=== PATIENT | female | born 1945 | race Caucasian/White ===

== ENCOUNTER 2018-01-10 20:49 | Inpatient (IN) | payer OTHER ==
--- NOTE | 2018-01-10 20:56 | PDOC ---
History of Present Illness - General Stated Complaint: AMS History Source: Patient, Sibling Exam Limitations: No Limitations - History of Present Illness Initial Comments: 01/10/18 21:51 Ms. George is a 72 year old female with a history of HTN, HLD, alcohol abuse, COPD, atrial fibrillation on eliquis, although recently taken off on 01/08 due to fall/head injury, who was admitted for acute exacerbation of her COPD that left AMA today and now returns with worsening shortness of breath and non productive cough. Patient states that she was walking the street wit her her rolling walker, police called ambulance and brought her here. She is [place]. She denies chest pain, SCHULZ, LOC, blurry vision, abdominal pain, dysuria, leg swelling. Denies currently drinking or drug use. Admits to occasional cigarettes. In the ED patient hypoxic in the 80s, normotensive, afebrile. Past History - Past Medical History Allergies/Adverse Reactions: Allergies Allergy/AdvReac Type Severity Reaction Status Date / Time No Known Allergies Allergy Verified 01/10/18 22:20 Home Medications: Ambulatory Orders Albuterol Sulfate Inhaler - [Ventolin Hfa Inhaler -] 1 - 2 inh PO Q4H 01/08/18 Apixaban [Eliquis] 5 mg PO BID 01/08/18 Atorvastatin Ca [Lipitor] 80 mg PO HS 01/08/18 Carvedilol [Coreg -] 6.25 mg PO BID 01/08/18 Montelukast Sodium [Singulair] 10 mg PO DAILY 01/08/18 Cancer: No COPD: No CHF: No Dementia: No Dialysis: No Disorders: No Hypercholesterolemia: No Liver Disease: No - Surgical History Appendectomy: No GI Surgery: No Lung Surgery: No - Immunization History Immunization Up to Date: No - Suicide/Smoking/Psychosocial Hx Smoking History: Unknown if ever smoked Hx Alcohol Use: Yes Drug/Substance Use Hx: No Substance Use Type: Alcohol Review of Systems - Review of Systems Able to Perform ROS?: Yes Is the patient limited Khmer proficient: Yes Constitutional: No: Chills, Diaphoresis, Fever, Loss of Appetite, Weakness Respiratory: Yes: SOB with Exertion, SOB at Rest, Wheezing. No: Cough, Orthopnea, Shortness of Breath, Productive cough, Hemoptysis Cardiac (ROS): No: Chest Pain, Edema, Lightheadedness, Palpitations, Syncope ABD/GI: No: Abdominal Distended, Diarrhea, Nausea, Vomiting : No: Burning, Dysuria, Discharge Musculoskeletal: No: Back Pain, Joint Pain Integumentary: Yes: Bruising Neurological: No: Headache, Numbness, Paresthesia Endocrine: No: Excessive Sweating, Flushing Hematologic/Lymphatic: Yes: Blood Clots. No: Anemia *Physical Exam - Physical Exam General Appearance: Yes: Appropriately Dressed, Disheveled, Thin HEENT: positive: Normal ENT Inspection, Pharynx Normal, Other (dry mucus membranes) Respiratory/Chest: positive: Decreased Breath Sounds, Rhonchi, Wheezing, Other ( very course breath sounds throughout bilateral lung nelson) Cardiovascular: positive: S1, S2, Irregularly Irregular Gastrointestinal/Abdominal: positive: Normal Bowel Sounds. 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 She presented with worsening sob, cough, hypoxic in the 80s. VBG CO2 74; PH 7.27 #acute hypoxic/hypercapniec respiratory failure secondary to COPD exacerbation: -suppplemental O2 -duonebs -solumedrol 125mg IVP -BiPAP; patient is retaining CO2 -re eval 01/10/18 23:18 -will admit to hospitalist *DC/Admit/Observation/Transfer Diagnosis at time of Disposition: Acute respiratory failure with hypoxia and hypercapnia, COPD exacerbation - Discharge Dispostion Decision to Admit order: Yes - Referrals - Patient Instructions - Post Discharge Activity
[2018-01-10] MEDS ORDERED: ALBUTEROL SO4 2.5/IPRATROPIUM 0.5 INH SOL 3 ML VIAL.NEB. NEB ONE ×4 (21:19→22:34)
[2018-01-10] MEDS ORDERED: methylPREDNISolone NA SUCC 125 MG/2 ML VIAL IVPB ONE (21:20)
[2018-01-10 22:24] LABS: BASO % 0.1 % (0-2.0); HEMATOCRIT 34.1 % (32.4-45.2); LYMPH % 6.1 % (8-40); MCH 28.6 pg (25.7-33.7); MCHC 32.3 g/dl (32.0-36.0); MEAN CELL VOLUME 88.4 fl (80-96); MEAN PLT VOLUME 9.5 fl (7.5-11.1); MONO % 5.3 % (3.8-10.2); NEUT % 88.5 % (42.8-82.8); PLATELET COUNT 252 K/MM3 (134-434); RBC 3.86 M/mm3 (3.60-5.2); RDW 18.9 % (11.6-15.6); WHITE BLOOD COUNT 13.7 K/mm3 (4.0-10.0)
[2018-01-10 22:26] LABS: VENOUS PH 7.27 (7.32-7.42); VENOUS PO2 32.4 mmHg (28-48)
[2018-01-10 22:27] LABS: VENOUS PC02 74.4 mmHg (38-52)
[2018-01-10] MEDS ORDERED: methylPREDNISolone NA SUCC 40 MG/1 ML VIAL ONE (22:30)
[2018-01-10] MEDS ORDERED: methylPREDNISolone NA SUCC 40 MG/1 ML VIAL IVPUSH ONE (22:31)
[2018-01-10] MEDS ORDERED: methylPREDNISolone NA SUCC 125 MG/2 ML VIAL IVPUSH ONE (22:34)
[2018-01-10] MEDS ORDERED: methylPREDNISolone NA SUCC 125 MG/2 ML VIAL ONE (22:34)
[2018-01-10 22:43] LABS: INR 1.03 (0.83-1.09); PROTHROMBIN TIME (PATIENT) 12.2 SEC (9.7-13.0)
[2018-01-10 22:59] LABS: ALBUMIN 3.4 g/dl (3.4-5.0); ALK PHOS 105 U/L (45-117); ANION GAP 6 MMOL/L (8-16); BILIRUBIN,TOTAL 0.4 mg/dL (0.2-1); BLOOD UREA NITROGEN 34 mg/dL (7-18); CHLORIDE 107 mmol/L (98-107); CO2 35 mmol/L (22-28); CREATININE 1.3 mg/dL (0.55-1.3); GLUCOSE,RANDOM 191 mg/dL (74-106); POTASSIUM 3.6 mmol/L (3.5-5.1); SGOT/AST 19 U/L (15-37); SGPT/ALT 26 U/L (13-61); SODIUM 147 mmol/L (136-145); TOT PROT 7.2 g/dl (6.4-8.2)
--- NOTE | 2018-01-10 23:17 | PDOC ---
Attending Attestation - Resident Resident Name: Amara Sampson - ED Attending Attestation I have performed the following: I have examined & evaluated the patient, The case was reviewed & discussed with the resident, I agree w/resident's findings & plan, Exceptions are as noted - HPI HPI: 01/10/18 23:15 The patient is a 72-year-old female with past medical history significant for COPD, AFib, HLD, HTN presents to the emergency department with shortness of breath. Per records, the patient was admitted to the hospital for COPD exacerbation 3 days ago; the patient reports she requested to be CO'ed yesterday to collect her personal belongings. Today, police officers found the patient on the streets, and pt was brought back to the hospital. The patient endorses shortness of breath, denies chest pain, fever, N/V, diarrhea. The patient is a resident at the [facility]. Allergies: NKA Social history: Reports the use of alcohol and tobacco. No recreational drug use reported. Surgical history: None reported. PCP: Marisabel Bryant - Physicial Exam PE: 01/10/18 23:16 "GENERAL: Awake, alert, and fully oriented, in no acute distress. HEAD: No signs of trauma EYES: PERRLA, EOMI, sclera anicteric, conjunctiva clear ENT: Auricles normal inspection, hearing grossly normal, nares patent, oropharynx clear without exudates. Moist mucosa NECK: Nontender, no stepoffs, Normal ROM, supple, no lymphadenopathy, JVD, or masses LUNGS: + bilateral wheezing HEART: Regular rate and rhythm, normal S1 and S2, no murmurs, rubs or gallops ABDOMEN: Soft, nontender, normoactive bowel sounds. No guarding, no rebound. No masses EXTREMITIES: Normal range of motion, no edema. No clubbing or cyanosis. No cords, erythema, or tenderness NEUROLOGICAL: Cranial nerves II through XII intact. 5/5 strength and sensation in all extremities, Normal speech, normal gait, normal cerebellar function SKIN: Warm, Dry, normal turgor, no rashes or lesions noted. - Medical Decision Making 01/10/18 23:16 72 F with SOB and wheezing. Likely COPD exacerbation. - Labs, VBG - CXR - Nebs, steroids - BiPAP PRN
[2018-01-11] MEDS ORDERED: ALBUTEROL SO4 0.083% IH SOL 2.5 MG/3 ML VIAL.NEB. NEB PRN (00:06)
--- NOTE | 2018-01-11 00:50 | PN ---
Teaching Attending Note Name of Resident: Juaquin Heard ATTENDING PHYSICIAN STATEMENT I saw and evaluated the patient. I reviewed the resident's note and discussed the case with the resident. I agree with the resident's findings and plan as documented. SUBJECTIVE: Patient is a 72 year old woman with a history of HTN, HLD, alcohol abuse, COPD, atrial fibrillation on eliquis, although recently taken off on 01/08 due to fall/ head injury, who was admitted for acute exacerbation of her COPD that left AMA today and now returns with worsening SOB and non productive cough. Patient states that she was walking the street wit her her rolling walker, police called ambulance and brought her here. She is from [facility] living. She denies chest pain, blurry vision, abdominal pain, dysuria, leg swelling. In the ER patient was hypoxic with O2 sat in the 80s, normotensive, afebrile. OBJECTIVE: HEENT: No Jaundice, eye redness or discharge, PERRLA, EOMI. Resolving left parietal scalp hematoma and healed right brow laceration. External ears are normal. Hearing intact. No nasal discharge. Neck: Supple, nontender. No palpable adenopathy or thyromegaly. No JVD Chest: Good effort. Wheezing. Heart: Regular. No S3, rub or murmur Abdomen: Not distended, soft, nontender and no HSM. No rebound or guarding. Normoactive bowel sounds. Ext: Peripheral pulses intact. No leg edema. Skin: Warm and dry. No petechiae, rash or ecchymosis. Neuro: Alert. Oriented to person and place. No asterexis or tremors. CN 2-12 grossly intact. Sensation grossly intact in all four extremities and DTR are symmetric. Current Medications Generic Name Dose Route Start Last Admin Trade Name Freq PRN Reason Stop Dose Admin Albuterol Sulfate 1 amp 01/11/18 00:06 Ventolin 0.083% Nebulizer Soln - NEB Q4H PRN SHORT OF BREATH/WHEEZING Apixaban 5 mg 01/11/18 10:00 Eliquis - PO BID CINDY Atorvastatin Calcium 80 mg 01/11/18 22:00 Lipitor - PO HS CINDY Carvedilol 6.25 mg 01/11/18 10:00 Coreg - PO BID [facility]INDY Ipratropium [place] 1 amp 01/11/18 08:00 Atrovent 0.02% Nebulizer - NEB RQID [facility] Methylprednisolone Sodium Succinate 40 mg 01/11/18 03:00 Solu-Medrol - IVPUSH Q6H-IV [facility] Montelukast Sodium 10 mg 01/11/18 22:00 Singulair - PO [facility] Home Medications Medication Instructions Recorded Albuterol Sulfate Inhaler - 1 - 2 inh PO Q4H 01/08/18 [Ventolin Hfa Inhaler -] Apixaban [Eliquis] 5 mg PO BID 01/08/18 Atorvastatin Ca [Lipitor] 80 mg PO HS 01/08/18 Carvedilol [Coreg -] 6.25 mg PO BID 01/08/18 Montelukast Sodium [Singulair] 10 mg PO DAILY 01/08/18 Abnormal Lab Results 01/10/18 01/10/18 01/10/18 02:21 02:21 02:21 WBC 13.7 H RDW 18.9 H Absolute Neuts (auto) 12.1 H Neutrophils % 88.5 H D Lymphocytes % 6.1 L D ABG pCO2 at Pt Temp ABG pO2 at Pt Temp ABG HCO3 ABG O2 Content ABG Base Excess VBG pH 7.27 L POC VBG pCO2 74.4 H* Mixed VBG HCO3 33.6 H Sodium 147 H Carbon Dioxide 35 H Anion Gap 6 L BUN 34 H Random Glucose 191 H 01/11/18 00:47 WBC RDW Absolute Neuts (auto) Neutrophils % Lymphocytes % ABG pCO2 at Pt Temp 56.2 H ABG pO2 at Pt Temp 111.0 H ABG HCO3 31.0 H ABG O2 Content 14.1 L ABG Base Excess 5.1 H VBG pH POC VBG pCO2 Mixed VBG HCO3 Sodium Carbon Dioxide Anion Gap BUN Random Glucose ASSESSMENT AND PLAN: 1. COPD exacerbation - No obvious precipitating factor. Has chronic reticulonodular fibrotic changes on CXR - no acute pathology. being treated with duoneb, solumedrol and symbicort as well as O2. 2. Alcohol abuse - Implement [facility] alcohol withdrawal protocol, fall and aspiration precautions. Treat with thiamine and folic acid and monitor electrolytes (Ca,Mg,K,P) as well as CPK. 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 3.Tobacco Use We will provide patient all the necessary assistance to facilitate smoking cessation and prescribe Nicotine patch. 4. DVT prophylaxis - On Eliquis 5. Advance directives - Full code
[2018-01-11 00:53] LABS: ALLENS TEST POSITIVE; ARTERIAL BLD GAS O2 SATURATION 98.1 % (90-98.9); ARTERIAL BLOOD GAS BASE EXCESS 5.1 meq/l (-2-2); ARTERIAL BLOOD GAS PCO2 56.2 mmHg (35-45); ARTERIAL BLOOD GAS pH 7.36 (7.35-7.45)
--- NOTE | 2018-01-11 01:09 | HP ---
CHIEF COMPLAINT: SOB PCP: HISTORY OF PRESENT ILLNESS: 72 yo F from [facility] living [facility] with history of Afib , COPD, hyperlipidemia who was admitted for acute exacerbation of her COPD that left AMA today and now returns with worsening shortness of breath and non productive cough. Patient states that she was walking the street wit her her rolling walker , police called ambulance and brought her here. Denies CP,SCHULZ, palpitations, abdominal pain,nausea, and vomiting. ER course was notable for: (1) VBG shows pH 7.27 and CO2 74.4 (2) Placed on BiPaP in ED. (3) Recent Travel: denies PAST MEDICAL HISTORY: Afib on elequis, COPD, hyperlipidemia PAST SURGICAL HISTORY: denies Social History: Smoking: current smoker. Admits 10 cigarettes/ day. Refuses to quantify pack year history. Alcohol: Admits former alcohol consumption. Again, patient refuses to quantify. Drugs: denies illicit drug use Family History: Unable to obtain. Patient agitated and refuses to discuss at this time. Allergies No Known Allergies Allergy (Verified 01/10/18 22:20) HOME MEDICATIONS: Home Medications Medication Instructions Recorded Albuterol Sulfate Inhaler - 1 - 2 inh PO Q4H 01/08/18 [Ventolin Hfa Inhaler -] Apixaban [Eliquis] 5 mg PO BID 01/08/18 Atorvastatin Ca [Lipitor] 80 mg PO HS 01/08/18 Carvedilol [Coreg -] 6.25 mg PO BID 01/08/18 Montelukast Sodium [Singulair] 10 mg PO DAILY 01/08/18 REVIEW OF SYSTEMS CONSTITUTIONAL: Absent: fever, chills, diaphoresis, generalized weakness, malaise, loss of appetite, weight change HEENT: Absent: rhinorrhea, nasal congestion, throat pain, throat swelling, difficulty swallowing, mouth swelling, ear pain, eye pain, visual changes CARDIOVASCULAR: Absent: chest pain, syncope, palpitations, irregular heart rate, lightheadedness , peripheral edema RESPIRATORY: cough, shortness of breath, dyspnea with exertion Absent: , orthopnea, wheezing, stridor, hemoptysis GASTROINTESTINAL: Absent: abdominal pain, abdominal distension, nausea, vomiting, diarrhea, constipation, melena, hematochezia GENITOURINARY: Absent: dysuria, frequency, urgency, hesitancy, hematuria, flank pain, genital pain MUSCULOSKELETAL: Absent: myalgia, arthralgia, joint swelling, back pain, neck pain SKIN: Absent: rash, itching, pallor HEMATOLOGIC/IMMUNOLOGIC: Absent: easy bleeding, easy bruising, lymphadenopathy, frequent infections ENDOCRINE: Absent: unexplained weight gain, unexplained weight loss, heat intolerance, cold intolerance NEUROLOGIC: Absent: headache, focal weakness or paresthesias, dizziness, unsteady gait, seizure, mental status changes, bladder or bowel incontinence PSYCHIATRIC: Absent: anxiety, depression, suicidal or homicidal ideation, hallucinations. PHYSICAL EXAMINATION Vital Signs - 24 hr 01/10/18 01/10/18 01/11/18 22:21 23:07 00:03 Temperature 97.6 F Pulse Rate 66 114 H Respiratory 20 Rate Blood Pressure 119/69 O2 Sat by Pulse 80 L 97 100 Oximetry (%) GENERAL: lethargic HEAD: Left scalp tender to palpation with laceration over right eyebrow, tender to palpation. EYES: PERRLA, EOMI, sclera anicteric, conjunctiva clear. No lid lag. EARS, NOSE, THROAT: Dry mucous membranes. NECK: Supple without lymphadenopathy, JVD, or masses. LUNGS: Diminished breath sounds bilat. scattered rhonchi. HEART:Irregular, normal S1 and S2 without murmur, rub or gallop. ABDOMEN: Soft, NTND,NABS, no guarding, no rebound, no masses. MUSCULOSKELETAL: No CVA tenderness. UPPER EXTREMITIES: 2+ pulses, warm, well-perfused. No cyanosis. No clubbing. No peripheral edema. LOWER EXTREMITIES: 2+ pulses, warm, well-perfused. No calf tenderness. No peripheral edema. NEUROLOGICAL: Cranial nerves II-XII intact. Normal speech. PSYCHIATRIC: lethargic SKIN: Warm, dry, Laceration over right eyebrow. Laboratory Results - last 24 hr 01/10/18 01/10/18 01/10/18 02:21 02:21 02:21 WBC 13.7 H RBC 3.86 Hgb 11.0 Hct 34.1 MCV 88.4 MCH 28.6 MCHC 32.3 RDW 18.9 H Plt Count 252 MPV 9.5 D Absolute Neuts (auto) 12.1 H Neutrophils % 88.5 H D Lymphocytes % 6.1 L D Monocytes % 5.3 Eosinophils % 0.0 D Basophils % 0.1 Nucleated RBC % 0 PT with INR INR VBG pH POC VBG pCO2 POC VBG pO2 Mixed VBG HCO3 Sodium 147 H Potassium 3.6 Chloride 107 Carbon Dioxide 35 H Anion Gap 6 L BUN 34 H Creatinine 1.3 Creat Clearance w eGFR 40.04 Random Glucose 191 H Calcium 9.0 Total Bilirubin 0.4 AST 19 ALT 26 Alkaline Phosphatase 105 Creatine Kinase 54 Troponin I Cancelled Total Protein 7.2 Albumin 3.4 Alcohol, Quantitative < 3.0 01/10/18 01/10/18 01/10/18 02:21 02:21 02:21 WBC RBC Hgb Hct MCV MCH MCHC RDW Plt Count MPV Absolute Neuts (auto) Neutrophils % Lymphocytes % Monocytes % Eosinophils % Basophils % Nucleated RBC % PT with INR INR VBG pH 7.27 L POC VBG pCO2 74.4 H* POC VBG pO2 32.4 Mixed VBG HCO3 33.6 H Sodium Potassium Chloride Carbon Dioxide Anion Gap BUN Creatinine Creat Clearance w eGFR Random Glucose Calcium Total Bilirubin AST ALT Alkaline Phosphatase Creatine Kinase Cancelled Troponin I < 0.02 Total Protein Albumin Alcohol, Quantitative Cancelled 01/10/18 02:21 WBC RBC Hgb Hct MCV MCH MCHC RDW Plt Count MPV Absolute Neuts (auto) Neutrophils % Lymphocytes % Monocytes % Eosinophils % Basophils % Nucleated RBC % PT with INR 12.20 INR 1.03 VBG pH POC VBG pCO2 POC VBG pO2 Mixed VBG HCO3 Sodium Potassium Chloride Carbon Dioxide Anion Gap BUN Creatinine Creat Clearance w eGFR Random Glucose Calcium Total Bilirubin AST ALT Alkaline Phosphatase Creatine Kinase Troponin I Total Protein Albumin Alcohol, Quantitative ASSESSMENT/PLAN: 72 yo F from [facility] living facility with history of Afib , COPD, hyperlipidemia who was admitted for acute exacerbation COPD. Problem List - Problem (1) Acute exacerbation of chronic obstructive pulmonary disease (COPD) Assessment/Plan: * Duonebs standing and albuterol PRN * Supplemental O2 PRN to maintain SpO2 >90% * ABG in AM * Solumedrol 40mg Q6H * BiPap PRN * Pulmonary consult * (2) Chronic a-fib Assessment/Plan: continue Eliquis (3) Alcohol abuse Assessment/Plan: Implement [facility] alcohol withdrawal protocol * fall and aspiration precautions. * Treat with thiamine and folic acid and monitor electrolytes (Ca,Mg,K,P) as well as CPK. 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 Visit type - Emergency Visit Emergency Visit: Yes ED Registration Date: 01/10/18 Care time: The patient presented to the Emergency Department on the above date and was hospitalized for further evaluation of their emergent condition. - New Patient This patient is new to me today: Yes Date on this admission: 01/13/18 - Critical Care Critical Care patient: No
[2018-01-11] MEDS ORDERED: QUEtiapine FUMARATE 25 MG TABLET (FP) PO ONE (01:33)
[2018-01-11] MEDS ORDERED: HALOPERIDOL LACTATE 5 MG/ML IM ONE (01:37)
[2018-01-11] MEDS ORDERED: HALOPERIDOL LACTATE 5 MG/ML ONE (01:38)
[2018-01-11] MEDS ORDERED: methylPREDNISolone NA SUCC 40 MG/1 ML VIAL ONE (04:15)
[2018-01-11] MEDS: methylPREDNISolone NA SUCC 40 MG/1 ML VIAL IVPUSH SCH ×4 (04:21→21:14)
[2018-01-11 05:49] VITALS: BMI 22.1
[2018-01-11] MEDS: ALBUTEROL SO4 2.5/IPRATROPIUM 0.5 INH SOL 3 ML VIAL.NEB. NEB SCH ×4 (07:45→21:40)
[2018-01-11] MEDS ORDERED: IPRATROPIUM BR 0.02% 0.5 MG/2.5 ML VIAL.NEB. NEB SCH (08:00)
[2018-01-11] MEDS ORDERED: chlordiazePOXIDE HCL 25 MG CAPSULE PO PRN (11:13)
[2018-01-11] MEDS ORDERED: cefTRIAXone SODIUM 1 GM VIAL ONE (11:13)
[2018-01-11] MEDS ORDERED: DEXTROSE 5%-WATER - 50 ML IVPB ONE (11:14)
[2018-01-11] MEDS: LACTOBACILLUS ACIDOPHILUS 1 TABLET PO SCH (11:16)
[2018-01-11] MEDS: APIXABAN 5 MG TABLET PO SCH ×2 (11:16→21:14)
[2018-01-11] MEDS: CEFTRIAXONE 1 GM in DEXTROSE 5%-WATER - 50 ML IVPB SCH (11:16)
[2018-01-11] MEDS: CARVEDILOL 6.25 MG TABLET (FP) PO SCH ×2 (11:16→21:14)
--- NOTE | 2018-01-11 11:20 | PN ---
Progress Note, Physician Chief Complaint: Somnolent - Current Medication List Current Medications: Active Medications Albuterol Sulfate (Ventolin 0.083% Nebulizer Soln -) 1 amp NEB Q4H PRN PRN Reason: SHORT OF BREATH/WHEEZING Albuterol/Ipratropium (Duoneb -) 1 amp NEB RQID [facility] Last Admin: 01/11/18 07:45 Dose: 1 amp Apixaban (Eliquis -) 5 mg PO BID [facility] Atorvastatin Calcium (Lipitor -) 80 mg PO HS [facility] Carvedilol (Coreg -) 6.25 mg PO BID [facility] Chlordiazepoxide HCl (Librium -) 25 mg PO Q6H PRN PRN Reason: WITHDRAWAL(CONT SUBST) Ceftriaxone Sodium 1 gm/ (Dextrose) 50 mls @ 100 mls/hr IVPB DAILY [facility]; Protocol Lactobacillus Acidophilus (Bacid -) 1 tab PO DAILY [facility] Methylprednisolone Sodium Succinate (Solu-Medrol -) 40 mg IVPUSH Q6H-IV [facility] Last Admin: 01/11/18 04:21 Dose: 40 mg Montelukast Sodium (Singulair -) 10 mg PO HS [facility] - Objective Vital Signs: Vital Signs Temperature 36.2 C L 01/11/18 05:39 Pulse Rate 88 01/11/18 05:39 Respiratory Rate 20 01/11/18 05:56 Blood Pressure 103/66 01/11/18 05:39 O2 Sat by Pulse Oximetry (%) 100 01/11/18 09:00 Constitutional: Yes: Well Nourished, No Distress, Calm Cardiovascular: Yes: Regular Rate and Rhythm. No: Gallop, Murmur, Rub Respiratory: Yes: Regular, On Nasal O2, Rhonchi (in all lung nelson). No: Rales , Wheezes Gastrointestinal: Yes: Normal Bowel Sounds, Soft. No: Distention, Tenderness Extremities: Yes: WNL Edema: No Labs: CBC, BMP 01/10/18 02:21 01/10/18 02:21 INR, PTT INR 1.03 (0.83-1.09) 01/10/18 02:21 Problem List - Problems (1) UTI (urinary tract infection) Code(s): N39.0 - URINARY TRACT INFECTION, SITE NOT SPECIFIED (2) Tobacco abuse Code(s): Z72.0 - TOBACCO USE (3) Acute exacerbation of chronic obstructive pulmonary disease (COPD) Code(s): J44.1 - CHRONIC OBSTRUCTIVE PULMONARY DISEASE W (ACUTE) EXACERBATION (4) Acute respiratory failure with hypoxia and hypercapnia Code(s): J96.01 - ACUTE RESPIRATORY FAILURE WITH HYPOXIA; J96.02 - ACUTE RESPIRATORY FAILURE WITH HYPERCAPNIA (5) Alcohol abuse Code(s): F10.10 - ALCOHOL ABUSE, UNCOMPLICATED (6) Chronic a-fib Code(s): I48.2 - CHRONIC ATRIAL FIBRILLATION (7) Toxic metabolic encephalopathy Code(s): G92 - TOXIC ENCEPHALOPATHY Assessment/Plan (1) Acute exacerbation of chronic obstructive pulmonary disease (COPD) Assessment/Plan: -patient left AMA, presented again when had difficulty breathing -continue solumedrol -continue bronchodilators -monitor for improvement Code(s): J44.1 - CHRONIC OBSTRUCTIVE PULMONARY DISEASE W (ACUTE) EXACERBATION (2) Acute on chronic respiratory failure with hypoxemia Assessment/Plan: -continue COPD treatment as above Code(s): J96.21 - ACUTE AND CHRONIC RESPIRATORY FAILURE WITH HYPOXIA (3) Chronic a-fib Assessment/Plan: -holding coreg secondary to hypotension -still rate controlled -holding eliquis secondary to fall -may not be able to restart eliquis secondary to falling home Code(s): I48.2 - CHRONIC ATRIAL FIBRILLATION (4) Alcohol intoxication with toxic metabolic encephalopathy Assessment/Plan: -somnolent secondary to receiving haldol and seroquel -will place on prn librium for withdrawal Code(s): F10.929 - ALCOHOL USE, UNSPECIFIED WITH INTOXICATION, UNSPECIFIED Qualifiers: Complication of substance-induced condition: uncomplicated Qualified Code(s ): F10.920 - Alcohol use, unspecified with intoxication, uncomplicated (5) UTI -continue rocephin day 2 -follow up urine cultures (6) Tobacco abuse -will order nicotine patch
--- NOTE | 2018-01-11 12:27 | CON.PULM ---
Consult Consult Specialty:: PULM/CCM Referred by:: EMY Reason for Consultation:: SOB - History of Present Illness Chief Complaint: SOB History of Present Illness: 72 F, known from previous admissions. History of HTN, HLD, alcohol abuse, COPD , and atrial fibrillation on eliquis (recently taken off on 01/08 due to fall/ head injury). Was admitted for AE of COPD and then left AMA. Now returns with worsening SOB and non productive cough. No travel history or sick contacts. No hemoptysis or night sweats. In the ER she was noted to be hypoxic with O2 sat in the 80s. VBG noted. Repeat ABG reveals well compensated chronic respiratory failure. - History Source History Provided By: Patient Limitations to Obtaining History: Language Barrier - Past Medical History Cardio/Vascular: Yes: AFIB, Hyperlipdemia Pulmonary: Yes: COPD - Alcohol/Substance Use Hx Alcohol Use: Yes - Smoking History Smoking history: Current every day smoker Have you smoked in the past 12 months: Yes Aproximately how many cigarettes per day: 3 Home Medications - Allergies Allergies/Adverse Reactions: Allergies Allergy/AdvReac Type Severity Reaction Status Date / Time No Known Allergies Allergy Verified 01/10/18 22:20 - Home Medications Home Medications: Ambulatory Orders Albuterol Sulfate Inhaler - [Ventolin Hfa Inhaler -] 1 - 2 inh PO Q4H 01/08/18 Apixaban [Eliquis] 5 mg PO BID 01/08/18 Atorvastatin Ca [Lipitor] 80 mg PO HS 01/08/18 Carvedilol [Coreg -] 6.25 mg PO BID 01/08/18 Montelukast Sodium [Singulair] 10 mg PO DAILY 01/08/18 Review of Systems - Review of Systems Constitutional: reports: Lethargy, Loss of Appetite, Malaise, Weakness. denies : Chills, Fever, Night Sweats, Unintentional Wgt. Loss Eyes: reports: No Symptoms HENT: reports: No Symptoms Neck: reports: No Symptoms Cardiovascular: reports: Shortness of Breath. denies: Chest Pain, Edema, Palpitations Respiratory: reports: Cough, Exercise Intolerance, SOB, SOB on Exertion, Wheezing. denies: Hemoptysis, Orthopnea, PND, Snoring Gastrointestinal: reports: No Symptoms Genitourinary: reports: No Symptoms Breasts: reports: No Symptoms Reported Musculoskeletal: reports: No Symptoms Integumentary: reports: No Symptoms Neurological: reports: No Symptoms Endocrine: reports: No Symptoms Hematology/Lymphatic: reports: No Symptoms Psychiatric: reports: No Symptoms Physical Exam Vital Sings: Vital Signs Temperature 97.2 F L 01/11/18 05:39 Pulse Rate 88 01/11/18 05:39 Respiratory Rate 20 01/11/18 05:56 Blood Pressure 103/66 01/11/18 05:39 O2 Sat by Pulse Oximetry (%) 100 01/11/18 09:00 Constitutional: Yes: No Distress, Thin Eyes: Yes: Conjunctiva Clear, EOM Intact HENT: Yes: Atraumatic, Normocephalic Neck: Yes: Supple, Trachea Midline Cardiovascular: Yes: Pulse Irregular Respiratory: Yes: Cough, On Nasal O2, Rhonchi, SOB on Exertion, Tachypnea, Wheezes. No: Accessory Muscle Use, Rales, SOB, Stridor ...Inspection: Yes: WNL ...Clubbing: No Gastrointestinal: Yes: Normal Bowel Sounds, Soft Renal/: Yes: WNL Musculoskeletal: Yes: WNL Extremities: Yes: WNL Edema: No Peripheral Pulses WNL: Yes Integumentary: Yes: WNL Neurological: Yes: WNL, Alert, Oriented ...Motor Strength: WNL Psychiatric: Yes: WNL, Alert, Oriented Labs: CBC, BMP 01/10/18 02:21 01/10/18 02:21 ABG Results ABG pH 7.36 (7.35-7.45) 01/11/18 00:47 ABG pCO2 at Pt Temp 56.2 mmHg (35-45) H 01/11/18 00:47 ABG pO2 at Pt Temp 111.0 mmHg (70-100) H 01/11/18 00:47 ABG HCO3 31.0 meq/L (22-26) H 01/11/18 00:47 ABG O2 Sat (Measured) 98.1 % (90-98.9) 01/11/18 00:47 ABG O2 Content 14.1 % vol (15-22) L 01/11/18 00:47 ABG Base Excess 5.1 meq/l (-2-2) H 01/11/18 00:47 Imaging - Results Chest X-ray: Report Reviewed, Image Reviewed Problem List - Problems (1) Acute exacerbation of chronic obstructive pulmonary disease (COPD) Code(s): J44.1 - CHRONIC OBSTRUCTIVE PULMONARY DISEASE W (ACUTE) EXACERBATION (2) Alcohol abuse Code(s): F10.10 - ALCOHOL ABUSE, UNCOMPLICATED (3) Tobacco abuse Code(s): Z72.0 - TOBACCO USE (4) UTI (urinary tract infection) Code(s): N39.0 - URINARY TRACT INFECTION, SITE NOT SPECIFIED (5) Acute on chronic respiratory failure with hypoxemia Code(s): J96.21 - ACUTE AND CHRONIC RESPIRATORY FAILURE WITH HYPOXIA (6) Chronic a-fib Code(s): I48.2 - CHRONIC ATRIAL FIBRILLATION (7) Congestive cardiac failure Code(s): I50.9 - HEART FAILURE, UNSPECIFIED (8) Fall Code(s): W19.XXXA - UNSPECIFIED FALL, INITIAL ENCOUNTER (9) Pulmonary hypertension Code(s): I27.20 - PULMONARY HYPERTENSION, UNSPECIFIED Assessment/Plan Medrol BD TX Empiric Rocephin for now Check urine antigen/sputum No smoking Fall precautions Will follow Thank you. Dr Lynch
[2018-01-11] MEDS: ATORVASTATIN CA 80 MG TABLET (FP) PO SCH (21:14)
[2018-01-11] MEDS: MONTELUKAST NA 10 MG TABLET PO SCH (21:14)
[2018-01-12] MEDS: methylPREDNISolone NA SUCC 40 MG/1 ML VIAL IVPUSH SCH ×3 (03:12→17:51)
[2018-01-12 07:14] LABS: URINE APPEARANCE CLOUDY; URINE BILIRUBIN NEGATIVE (<2.0 mg/dL); URINE COLOR YELLOW; URINE GLUCOSE (UA) NEGATIVE (NEGATIVE); URINE KETONE NEGATIVE (NEGATIVE); URINE LEUK ESTERASE 3+ (NEGATIVE); URINE NITRITE NEGATIVE (NEGATIVE); URINE PROTEIN 1+ (NEGATIVE); URINE UROBILINOGEN NEGATIVE mg/dL (0.2-1.0)
[2018-01-12 07:18] LABS: BASO % 0.1 % (0-2.0); HEMATOCRIT 32.4 % (32.4-45.2); HEMOGLOBIN 10.3 GM/dL (10.7-15.3); LYMPH % 9.3 % (8-40); MCH 28.1 pg (25.7-33.7); MCHC 31.9 g/dl (32.0-36.0); MEAN CELL VOLUME 88.2 fl (80-96); MEAN PLT VOLUME 9.1 fl (7.5-11.1); MONO % 4.4 % (3.8-10.2); NEUT % 86.2 % (42.8-82.8); PLATELET COUNT 230 K/MM3 (134-434); RBC 3.67 M/mm3 (3.60-5.2); RDW 18.7 % (11.6-15.6); WHITE BLOOD COUNT 8.4 K/mm3 (4.0-10.0)
[2018-01-12] MEDS: ALBUTEROL SO4 2.5/IPRATROPIUM 0.5 INH SOL 3 ML VIAL.NEB. NEB SCH ×4 (07:25→20:00)
[2018-01-12 07:29] LABS: EPI CELLS MODERATE /HPF (FEW); URINE BACTERIA MODERATE /hpf (NONE SEEN); URINE MUCUS RARE
[2018-01-12 07:46] LABS: ALBUMIN 2.7 g/dl (3.4-5.0); ALK PHOS 80 U/L (45-117); ANION GAP 2 MMOL/L (8-16); BILIRUBIN,TOTAL 0.3 mg/dL (0.2-1); BLOOD UREA NITROGEN 27 mg/dL (7-18); CALCIUM 8.7 mg/dL (8.5-10.1); CHLORIDE 112 mmol/L (98-107); CO2 33 mmol/L (21-32); GLUCOSE,RANDOM 148 mg/dL (74-106); MAGNESIUM 2.8 mg/dL (1.8-2.4); PHOSPHOROUS 3.5 mg/dL (2.5-4.9); POTASSIUM 4.3 mmol/L (3.5-5.1); SGOT/AST 12 U/L (15-37); SGPT/ALT 20 U/L (13-61); SODIUM 147 mmol/L (136-145)
[2018-01-12 08:00] LABS: COCAINE, UR NEGATIVE ng/ml (CUTOFF=300); METHADONE, UR NEGATIVE ng/ml (CUTOFF=300); OPIATES, URI NEGATIVE ng/ml (CUTOFF=300); PHENCYCLIDINE,URINE NEGATIVE ng/ml (CUTOFF=25); URINE AMPHETAMINES NEGATIVE ng/ml (CUTOFF=500); URINE BARBITURATES NEGATIVE ng/ml (CUTOFF=200)
[2018-01-12 08:24] LABS: URINE BENZODIAZEPINES POSITIVE ng/ml (CUTOFF=200)
[2018-01-12] MEDS ORDERED: DEXTROSE 5%-WATER - 50 ML IVPB ONE (09:46)
[2018-01-12] MEDS ORDERED: cefTRIAXone SODIUM 1 GM VIAL ONE (09:46)
[2018-01-12] MEDS ORDERED: PT OWN MED DRAWER 7, Y5N ONE (09:47)
[2018-01-12] MEDS: CARVEDILOL 6.25 MG TABLET (FP) PO SCH ×2 (09:53→21:26)
[2018-01-12] MEDS: CEFTRIAXONE 1 GM in DEXTROSE 5%-WATER - 50 ML IVPB SCH (09:53)
[2018-01-12] MEDS: APIXABAN 5 MG TABLET PO SCH ×2 (09:53→21:26)
[2018-01-12] MEDS: LACTOBACILLUS ACIDOPHILUS 1 TABLET PO SCH (09:53)
--- NOTE | 2018-01-12 11:08 | PN ---
Progress Note, Physician Chief Complaint: Ms George says she is feeling fine. Denies cp, sob, n/v. States she wants to go home. - Current Medication List Current Medications: Active Medications Albuterol Sulfate (Ventolin 0.083% Nebulizer Soln -) 1 amp NEB Q4H PRN PRN Reason: SHORT OF BREATH/WHEEZING Albuterol/Ipratropium (Duoneb -) 1 amp NEB RQID [facility] Last Admin: 01/12/18 07:25 Dose: 1 amp Apixaban (Eliquis -) 5 mg PO BID [facility] Last Admin: 01/12/18 09:53 Dose: 5 mg Atorvastatin Calcium (Lipitor -) 80 mg PO HS [facility] Last Admin: 01/11/18 21:14 Dose: 80 mg Carvedilol (Coreg -) 6.25 mg PO BID [facility] Last Admin: 01/12/18 09:53 Dose: 6.25 mg Chlordiazepoxide HCl (Librium -) 25 mg PO Q6H PRN PRN Reason: WITHDRAWAL(CONT SUBST) Ceftriaxone Sodium 1 gm/ (Dextrose) 50 mls @ 100 mls/hr IVPB DAILY [facility]; Protocol Last Admin: 01/12/18 09:53 Dose: 100 mls/hr Lactobacillus Acidophilus (Bacid -) 1 tab PO DAILY [facility] Last Admin: 01/12/18 09:53 Dose: 1 tab Methylprednisolone Sodium Succinate (Solu-Medrol -) 40 mg IVPUSH Q6H-IV [facility] Last Admin: 01/12/18 09:52 Dose: 40 mg Montelukast Sodium (Singulair -) 10 mg PO HS [facility] Last Admin: 01/11/18 21:14 Dose: 10 mg - Objective Vital Signs: Vital Signs Temperature 36.4 C 01/12/18 06:00 Pulse Rate 92 H 01/12/18 06:00 Respiratory Rate 18 01/12/18 06:00 Blood Pressure 116/59 L 01/12/18 06:00 O2 Sat by Pulse Oximetry (%) 96 01/11/18 21:00 Constitutional: Yes: Well Nourished, No Distress, Calm Cardiovascular: Yes: Regular Rate and Rhythm. No: Gallop, Murmur, Rub Respiratory: Yes: Regular, On Nasal O2, Rhonchi. No: CTA Bilaterally, Rales, Wheezes Gastrointestinal: Yes: Normal Bowel Sounds, Soft. No: Distention, Tenderness Extremities: Yes: WNL Edema: No Labs: CBC, BMP 01/12/18 06:00 01/12/18 06:00 INR, PTT INR 1.03 (0.83-1.09) 01/10/18 02:21 Problem List - Problems (1) UTI (urinary tract infection) Code(s): N39.0 - URINARY TRACT INFECTION, SITE NOT SPECIFIED (2) Tobacco abuse Code(s): Z72.0 - TOBACCO USE (3) Acute exacerbation of chronic obstructive pulmonary disease (COPD) Code(s): J44.1 - CHRONIC OBSTRUCTIVE PULMONARY DISEASE W (ACUTE) EXACERBATION (4) Acute respiratory failure with hypoxia and hypercapnia Code(s): J96.01 - ACUTE RESPIRATORY FAILURE WITH HYPOXIA; J96.02 - ACUTE RESPIRATORY FAILURE WITH HYPERCAPNIA (5) Alcohol abuse Code(s): F10.10 - ALCOHOL ABUSE, UNCOMPLICATED (6) Chronic a-fib Code(s): I48.2 - CHRONIC ATRIAL FIBRILLATION (7) Toxic metabolic encephalopathy Code(s): G92 - TOXIC ENCEPHALOPATHY (8) Hypernatremia Code(s): E87.0 - HYPEROSMOLALITY AND HYPERNATREMIA Assessment/Plan (1) Acute exacerbation of chronic obstructive pulmonary disease (COPD) Assessment/Plan: -patient appears improved today but still with ronchi -pulmonary following -continue solumedrol, duonebs, and singulair -start inhaled corticosteroid on discharge -will begin to titrate solumedrol Code(s): J44.1 - CHRONIC OBSTRUCTIVE PULMONARY DISEASE W (ACUTE) EXACERBATION (2) Acute on chronic respiratory failure with hypoxemia Assessment/Plan: -continue COPD treatment as above Code(s): J96.21 - ACUTE AND CHRONIC RESPIRATORY FAILURE WITH HYPOXIA (3) Chronic a-fib Assessment/Plan: -continue coreg and eliquis -will need PT to evaluate for fall risk Code(s): I48.2 - CHRONIC ATRIAL FIBRILLATION (4) Alcohol intoxication with toxic metabolic encephalopathy Assessment/Plan: -prn librium -mental status improving Code(s): F10.929 - ALCOHOL USE, UNSPECIFIED WITH INTOXICATION, UNSPECIFIED Qualifiers: Complication of substance-induced condition: uncomplicated Qualified Code(s ): F10.920 - Alcohol use, unspecified with intoxication, uncomplicated (5) UTI -continue rocephin day 3/7 -cultures growing e coli sensitive to all cephalosporins -change to keflex on discharge (6) Tobacco abuse -nicotine patch (7) Hypernatremia -D5W today
--- NOTE | 2018-01-12 12:18 | PN ---
Progress Note (short form) - Note Progress Note: Feels better. Wants to go home. No acute events overnight. Intake & Output 01/09/18 01/10/18 01/11/18 01/12/18 23:59 23:59 23:59 23:59 Intake Total 525 425 Balance 525 425 Weight 114 lb 113 lb 8 oz Last Vital Signs Temp Pulse Resp BP Pulse Ox 97.6 F 92 H 18 116/59 L 96 01/12/18 06:00 01/12/18 06:00 01/12/18 06:00 01/12/18 06:00 01/11/18 21:00 Active Medications Albuterol Sulfate (Ventolin 0.083% Nebulizer Soln -) 1 amp NEB Q4H PRN PRN Reason: SHORT OF BREATH/WHEEZING Albuterol/Ipratropium (Duoneb -) 1 amp NEB RQID [facility] Last Admin: 01/12/18 11:20 Dose: 1 amp Apixaban (Eliquis -) 5 mg PO BID [facility] Last Admin: 01/12/18 09:53 Dose: 5 mg Atorvastatin Calcium (Lipitor -) 80 mg PO HS [facility] Last Admin: 01/11/18 21:14 Dose: 80 mg Carvedilol (Coreg -) 6.25 mg PO BID [facility] Last Admin: 01/12/18 09:53 Dose: 6.25 mg Chlordiazepoxide HCl (Librium -) 25 mg PO Q6H PRN PRN Reason: WITHDRAWAL(CONT SUBST) Ceftriaxone Sodium 1 gm/ (Dextrose) 50 mls @ 100 mls/hr IVPB DAILY [facility]; Protocol Last Admin: 01/12/18 09:53 Dose: 100 mls/hr Dextrose (D5w -) 1,000 mls @ 42 mls/hr IV ASDIR [facility] Lactobacillus Acidophilus (Bacid -) 1 tab PO DAILY [facility] Last Admin: 01/12/18 09:53 Dose: 1 tab Methylprednisolone Sodium Succinate (Solu-Medrol -) 40 mg IVPUSH Q8H-IV [facility] Montelukast Sodium (Singulair -) 10 mg PO HS [facility] Last Admin: 01/11/18 21:14 Dose: 10 mg Nicotine (Nicoderm Patch -) 14 mg TD DAILY [facility] Constitutional: Yes: No Distress, Thin Eyes: Yes: Conjunctiva Clear, EOM Intact HENT: Yes: Atraumatic, Normocephalic Neck: Yes: Supple, Trachea Midline Cardiovascular: Yes: Pulse Irregular Respiratory: Yes: Cough, On Nasal O2, Rhonchi, Less Wheezes. No: Accessory Muscle Use, Rales, SOB, Stridor ...Inspection: Yes: WNL ...Clubbing: No Gastrointestinal: Yes: Normal Bowel Sounds, Soft Renal/: Yes: WNL Musculoskeletal: Yes: WNL Extremities: Yes: WNL Edema: No Peripheral Pulses WNL: Yes Integumentary: Yes: WNL Neurological: Yes: WNL, Alert, Oriented ...Motor Strength: WNL Psychiatric: Yes: WNL, Alert, Oriented Labs: Laboratory Results - last 24 hr 01/12/18 01/12/18 01/12/18 05:50 05:50 06:00 WBC 8.4 RBC 3.67 Hgb 10.3 L Hct 32.4 MCV 88.2 MCH 28.1 MCHC 31.9 L RDW 18.7 H Plt Count 230 MPV 9.1 Absolute Neuts (auto) 7.2 Neutrophils % 86.2 H Lymphocytes % 9.3 D Monocytes % 4.4 Eosinophils % 0.0 Basophils % 0.1 Nucleated RBC % 0 Sodium Potassium Chloride Carbon Dioxide Anion Gap BUN Creatinine Creat Clearance w eGFR Random Glucose Calcium Phosphorus Magnesium Total Bilirubin AST ALT Alkaline Phosphatase Total Protein Albumin Urine Color Yellow Urine Appearance Cloudy Urine pH 6.0 Ur Specific Depue 1.021 Urine Protein 1+ H Urine Glucose (UA) Negative Urine Ketones Negative Urine Blood 2+ H Urine Nitrite Negative Urine Bilirubin Negative Urine Urobilinogen Negative Ur Leukocyte Esterase 3+ H Urine WBC (Auto) 707 Urine RBC (Auto) 14 Ur Epithelial Cells Moderate Urine Bacteria Moderate Urine Mucus Rare Opiates Screen Negative Methadone Screen Negative Barbiturate Screen Negative Phencyclidine Screen Negative Ur Amphetamines Screen Negative MDMA (Ecstasy) Screen Negative Benzodiazepines Screen Positive A* Cocaine Screen Negative U Marijuana (THC) Screen Negative 01/12/18 06:00 WBC RBC Hgb Hct MCV MCH MCHC RDW Plt Count MPV Absolute Neuts (auto) Neutrophils % Lymphocytes % Monocytes % Eosinophils % Basophils % Nucleated RBC % Sodium 147 H Potassium 4.3 Chloride 112 H Carbon Dioxide 33 H Anion Gap 2 L BUN 27 H Creatinine 1.0 Creat Clearance w eGFR 54.20 Random Glucose 148 H Calcium 8.7 Phosphorus 3.5 Magnesium 2.8 H Total Bilirubin 0.3 AST 12 L ALT 20 Alkaline Phosphatase 80 Total Protein 6.0 L Albumin 2.7 L Urine Color Urine Appearance Urine pH Ur Specific Depue Urine Protein Urine Glucose (UA) Urine Ketones Urine Blood Urine Nitrite Urine Bilirubin Urine Urobilinogen Ur Leukocyte Esterase Urine WBC (Auto) Urine RBC (Auto) Ur Epithelial Cells Urine Bacteria Urine Mucus Opiates Screen Methadone Screen Barbiturate Screen Phencyclidine Screen Ur Amphetamines Screen MDMA (Ecstasy) Screen Benzodiazepines Screen Cocaine Screen U Marijuana (THC) Screen Problem List - Problems (1) Acute exacerbation of chronic obstructive pulmonary disease (COPD) Code(s): J44.1 - CHRONIC OBSTRUCTIVE PULMONARY DISEASE W (ACUTE) EXACERBATION (2) Alcohol abuse Code(s): F10.10 - ALCOHOL ABUSE, UNCOMPLICATED (3) Tobacco abuse Code(s): Z72.0 - TOBACCO USE (4) UTI (urinary tract infection) Code(s): N39.0 - URINARY TRACT INFECTION, SITE NOT SPECIFIED (5) Acute on chronic respiratory failure with hypoxemia Code(s): J96.21 - ACUTE AND CHRONIC RESPIRATORY FAILURE WITH HYPOXIA (6) Chronic a-fib Code(s): I48.2 - CHRONIC ATRIAL FIBRILLATION (7) Congestive cardiac failure Code(s): I50.9 - HEART FAILURE, UNSPECIFIED (8) Fall Code(s): W19.XXXA - UNSPECIFIED FALL, INITIAL ENCOUNTER (9) Pulmonary hypertension Code(s): I27.20 - PULMONARY HYPERTENSION, UNSPECIFIED Assessment/Plan Medrol taper BD TX Empiric Rocephin noted No smoking Fall precautions Dr Lynch Problem List - Problems (1) Acute exacerbation of chronic obstructive pulmonary disease (COPD) Code(s): J44.1 - CHRONIC OBSTRUCTIVE PULMONARY DISEASE W (ACUTE) EXACERBATION (2) Alcohol abuse Code(s): F10.10 - ALCOHOL ABUSE, UNCOMPLICATED (3) Tobacco abuse Code(s): Z72.0 - TOBACCO USE (4) UTI (urinary tract infection) Code(s): N39.0 - URINARY TRACT INFECTION, SITE NOT SPECIFIED (5) Acute on chronic respiratory failure with hypoxemia Code(s): J96.21 - ACUTE AND CHRONIC RESPIRATORY FAILURE WITH HYPOXIA (6) Chronic a-fib Code(s): I48.2 - CHRONIC ATRIAL FIBRILLATION (7) Congestive cardiac failure Code(s): I50.9 - HEART FAILURE, UNSPECIFIED (8) Fall Code(s): W19.XXXA - UNSPECIFIED FALL, INITIAL ENCOUNTER (9) Pulmonary hypertension Code(s): I27.20 - PULMONARY HYPERTENSION, UNSPECIFIED
[2018-01-12] MEDS: NICOTINE 14 MG/24 HOURS TOPICAL PATCH TD SCH (13:54)
[2018-01-12] MEDS: DEXTROSE 5%-WATER - 1,000 ML IV SCH (13:54)
--- NOTE | 2018-01-12 19:11 | EKG ---
Test Reason : Blood Pressure : / mmHG Vent. Rate : 114 BPM Atrial Rate : 178 BPM P-R Int : 000 ms QRS Dur : 182 ms QT Int : 372 ms P-R-T Axes : 000 104 060 degrees QTc Int : 512 ms ATRIAL FIBRILLATION WITH RAPID VENTRICULAR RESPONSE PREMATURE VENTRICULAR COMPLEXES ABNORMAL ECG WHEN COMPARED WITH ECG OF 08-JAN-2018 16:00, BASELINE ARTIFACT Confirmed by ROSEANN AMARO MD ([id number]) on 01/12/2018 7:10:52 PM Referred By: Confirmed By:ROSEANN AMARO MD
[2018-01-12] MEDS: ATORVASTATIN CA 80 MG TABLET (FP) PO SCH (21:26)
[2018-01-12] MEDS: MONTELUKAST NA 10 MG TABLET PO SCH (21:27)
[2018-01-13] MEDS: methylPREDNISolone NA SUCC 40 MG/1 ML VIAL IVPUSH SCH ×3 (01:42→17:38)
[2018-01-13] MEDS: ALBUTEROL SO4 2.5/IPRATROPIUM 0.5 INH SOL 3 ML VIAL.NEB. NEB SCH ×4 (07:15→20:02)
[2018-01-13 07:59] LABS: BASO % 0.1 % (0-2.0); HEMATOCRIT 33.4 % (32.4-45.2); HEMOGLOBIN 10.4 GM/dL (10.7-15.3); LYMPH % 9.7 % (8-40); MCH 27.8 pg (25.7-33.7); MCHC 31.3 g/dl (32.0-36.0); MEAN PLT VOLUME 9.2 fl (7.5-11.1); NEUT % 86.2 % (42.8-82.8); PLATELET COUNT 244 K/MM3 (134-434); RBC 3.75 M/mm3 (3.60-5.2); RDW 18.8 % (11.6-15.6); WHITE BLOOD COUNT 8.4 K/mm3 (4.0-10.0)
[2018-01-13 08:04] LABS: ANION GAP 4 MMOL/L (8-16); BLOOD UREA NITROGEN 29 mg/dL (7-18); CALCIUM 8.4 mg/dL (8.5-10.1); CHLORIDE 109 mmol/L (98-107); CO2 31 mmol/L (21-32); CREATININE 0.9 mg/dL (0.55-1.3); GLUCOSE,RANDOM 164 mg/dL (74-106); MAGNESIUM 2.4 mg/dL (1.8-2.4); PHOSPHOROUS 3.4 mg/dL (2.5-4.9); POTASSIUM 4.6 mmol/L (3.5-5.1); SODIUM 144 mmol/L (136-145)
[2018-01-13] MEDS ORDERED: cefTRIAXone SODIUM 1 GM VIAL ONE (09:47)
[2018-01-13] MEDS ORDERED: DEXTROSE 5%-WATER - 50 ML IVPB ONE (09:48)
[2018-01-13] MEDS: CEFTRIAXONE 1 GM in DEXTROSE 5%-WATER - 50 ML IVPB SCH (09:56)
[2018-01-13] MEDS: CARVEDILOL 6.25 MG TABLET (FP) PO SCH ×2 (09:57→21:21)
[2018-01-13] MEDS: APIXABAN 5 MG TABLET PO SCH ×2 (09:57→21:21)
[2018-01-13] MEDS: NICOTINE 14 MG/24 HOURS TOPICAL PATCH TD SCH (09:58)
[2018-01-13] MEDS: LACTOBACILLUS ACIDOPHILUS 1 TABLET PO SCH (09:58)
--- NOTE | 2018-01-13 11:02 | PN ---
Progress Note, Physician Chief Complaint: agitated wants to go home - Current Medication List Current Medications: Active Medications Albuterol Sulfate (Ventolin 0.083% Nebulizer Soln -) 1 amp NEB Q4H PRN PRN Reason: SHORT OF BREATH/WHEEZING Albuterol/Ipratropium (Duoneb -) 1 amp NEB RQID [facility] Last Admin: 01/13/18 07:15 Dose: 1 amp Apixaban (Eliquis -) 5 mg PO BID [facility] Last Admin: 01/13/18 09:57 Dose: 5 mg Atorvastatin Calcium (Lipitor -) 80 mg PO HS [facility] Last Admin: 01/12/18 21:26 Dose: 80 mg Carvedilol (Coreg -) 6.25 mg PO BID [facility] Last Admin: 01/13/18 09:57 Dose: 6.25 mg Chlordiazepoxide HCl (Librium -) 25 mg PO Q6H PRN PRN Reason: WITHDRAWAL(CONT SUBST) Ceftriaxone Sodium 1 gm/ (Dextrose) 50 mls @ 100 mls/hr IVPB DAILY [facility]; Protocol Last Admin: 01/13/18 09:56 Dose: 100 mls/hr Dextrose (D5w -) 1,000 mls @ 42 mls/hr IV ASDIR [facility] Last Admin: 01/12/18 13:54 Dose: 42 mls/hr Lactobacillus Acidophilus (Bacid -) 1 tab PO DAILY [facility] Last Admin: 01/13/18 09:58 Dose: 1 tab Methylprednisolone Sodium Succinate (Solu-Medrol -) 40 mg IVPUSH Q8H-IV [facility] Last Admin: 01/13/18 09:56 Dose: 40 mg Montelukast Sodium (Singulair -) 10 mg PO HS [facility] Last Admin: 01/12/18 21:27 Dose: 10 mg Nicotine (Nicoderm Patch -) 14 mg TD DAILY [facility] Last Admin: 01/13/18 09:58 Dose: 14 mg - Objective Vital Signs: Vital Signs Temperature 97.4 F L 01/13/18 09:00 Pulse Rate 89 01/13/18 09:00 Respiratory Rate 20 01/13/18 09:00 Blood Pressure 117/56 L 01/13/18 09:00 O2 Sat by Pulse Oximetry (%) 95 01/12/18 22:00 Elderly Frail patient agitated wants to go home HEENT: Mm moist, no anemia, PERRLA, Left Parietal hematoma and small laceration on Lateral margin of Rt eye in dressing NECK: supple, JVD +, Trachea central CHEST: CTA B/L CVS; S1S2 Irr ABD: No distention, non tender Bs + EXT: Trace edema, no calf tenderness, Pulses + RECTIFYING ATTENDANT: AOX3 non focal Labs: CBC, BMP 01/13/18 05:50 01/13/18 05:50 INR, PTT INR 1.03 (0.83-1.09) 01/10/18 02:21 Problem List - Problems (1) Acute exacerbation of chronic obstructive pulmonary disease (COPD) Assessment/Plan: cont IV steroids nebs and abx f/u pulmonary recommendations Code(s): J44.1 - CHRONIC OBSTRUCTIVE PULMONARY DISEASE W (ACUTE) EXACERBATION (2) Acute respiratory failure with hypoxia and hypercapnia Assessment/Plan: Due to COPd exacerbation improving with current management Code(s): J96.01 - ACUTE RESPIRATORY FAILURE WITH HYPOXIA; J96.02 - ACUTE RESPIRATORY FAILURE WITH HYPERCAPNIA (3) Alcohol abuse Assessment/Plan: On Thiamine and Librium protocol Code(s): F10.10 - ALCOHOL ABUSE, UNCOMPLICATED (4) UTI (urinary tract infection) Assessment/Plan: On IV Ceftriaxone Code(s): N39.0 - URINARY TRACT INFECTION, SITE NOT SPECIFIED (5) Congestive cardiac failure Assessment/Plan: Compensated Code(s): I50.9 - HEART FAILURE, UNSPECIFIED (6) Pulmonary hypertension Assessment/Plan: Due to COPD Code(s): I27.20 - PULMONARY HYPERTENSION, UNSPECIFIED (7) Tobacco abuse Assessment/Plan: Nicotine patch and counselling for smoking cessation Code(s): Z72.0 - TOBACCO USE (8) Chronic a-fib Assessment/Plan: Rate controlled on AC Code(s): I48.2 - CHRONIC ATRIAL FIBRILLATION (9) Toxic metabolic encephalopathy Assessment/Plan: Due to alcohol withdrawal, UTI and COPD exacerbation and Hypoxis Code(s): G92 - TOXIC ENCEPHALOPATHY
--- NOTE | 2018-01-13 12:20 | PN ---
Progress Note (short form) - Note Progress Note: Feels better. Eating lunch on [place] O2. Refused NIPPV overnight. No acute events overnight. Intake & Output 01/10/18 01/11/18 01/12/18 01/13/18 23:59 23:59 23:59 23:59 Intake Total 525 1075 504 Balance 525 1075 504 Weight 114 lb 113 lb 8 oz Last Vital Signs Temp Pulse Resp BP Pulse Ox 97.4 F L 89 20 117/56 L 92 L 01/13/18 09:00 01/13/18 09:00 01/13/18 09:00 01/13/18 09:00 01/13/18 09:00 Active Medications Albuterol Sulfate (Ventolin 0.083% Nebulizer Soln -) 1 amp NEB Q4H PRN PRN Reason: SHORT OF BREATH/WHEEZING Albuterol/Ipratropium (Duoneb -) 1 amp NEB RQID [facility] Last Admin: 01/13/18 11:29 Dose: 1 amp Apixaban (Eliquis -) 5 mg PO BID [facility] Last Admin: 01/13/18 09:57 Dose: 5 mg Atorvastatin Calcium (Lipitor -) 80 mg PO HS [facility] Last Admin: 01/12/18 21:26 Dose: 80 mg Carvedilol (Coreg -) 6.25 mg PO BID [facility] Last Admin: 01/13/18 09:57 Dose: 6.25 mg Chlordiazepoxide HCl (Librium -) 25 mg PO Q6H PRN PRN Reason: WITHDRAWAL(CONT SUBST) Ceftriaxone Sodium 1 gm/ (Dextrose) 50 mls @ 100 mls/hr IVPB DAILY [facility]; Protocol Last Admin: 01/13/18 09:56 Dose: 100 mls/hr Dextrose (D5w -) 1,000 mls @ 42 mls/hr IV ASDIR [facility] Last Admin: 01/12/18 13:54 Dose: 42 mls/hr Lactobacillus Acidophilus (Bacid -) 1 tab PO DAILY [facility] Last Admin: 01/13/18 09:58 Dose: 1 tab Methylprednisolone Sodium Succinate (Solu-Medrol -) 40 mg IVPUSH Q8H-IV [facility] Last Admin: 01/13/18 09:56 Dose: 40 mg Montelukast Sodium (Singulair -) 10 mg PO HS [facility] Last Admin: 01/12/18 21:27 Dose: 10 mg Nicotine (Nicoderm Patch -) 14 mg TD DAILY [facility] Last Admin: 01/13/18 09:58 Dose: 14 mg Constitutional: Yes: No Distress, Thin Eyes: Yes: Conjunctiva Clear, EOM Intact HENT: Yes: Atraumatic, Normocephalic Neck: Yes: Supple, Trachea Midline Cardiovascular: Yes: Pulse Irregular Respiratory: Yes: Cough, On Nasal O2, Rhonchi, Less Wheezes. No: Accessory Muscle Use, Rales, SOB, Stridor ...Inspection: Yes: WNL ...Clubbing: No Gastrointestinal: Yes: Normal Bowel Sounds, Soft Renal/: Yes: WNL Musculoskeletal: Yes: WNL Extremities: Yes: WNL Edema: No Peripheral Pulses WNL: Yes Integumentary: Yes: WNL Neurological: Yes: WNL, Alert, Oriented ...Motor Strength: WNL Psychiatric: Yes: WNL, Alert, Oriented Labs: Laboratory Results - last 24 hr 01/13/18 01/13/18 05:50 05:50 WBC 8.4 RBC 3.75 Hgb 10.4 L Hct 33.4 MCV 89.0 MCH 27.8 MCHC 31.3 L RDW 18.8 H Plt Count 244 MPV 9.2 Absolute Neuts (auto) 7.2 Neutrophils % 86.2 H Lymphocytes % 9.7 Monocytes % 4.0 Eosinophils % 0.0 Basophils % 0.1 Nucleated RBC % 0 Sodium 144 Potassium 4.6 Chloride 109 H Carbon Dioxide 31 Anion Gap 4 L BUN 29 H Creatinine 0.9 Creat Clearance w eGFR > 60 Random Glucose 164 H Calcium 8.4 L Phosphorus 3.4 Magnesium 2.4 Problem List - Problems (1) Acute exacerbation of chronic obstructive pulmonary disease (COPD) Code(s): J44.1 - CHRONIC OBSTRUCTIVE PULMONARY DISEASE W (ACUTE) EXACERBATION (2) Alcohol abuse Code(s): F10.10 - ALCOHOL ABUSE, UNCOMPLICATED (3) Tobacco abuse Code(s): Z72.0 - TOBACCO USE (4) UTI (urinary tract infection) Code(s): N39.0 - URINARY TRACT INFECTION, SITE NOT SPECIFIED (5) Acute on chronic respiratory failure with hypoxemia Code(s): J96.21 - ACUTE AND CHRONIC RESPIRATORY FAILURE WITH HYPOXIA (6) Chronic a-fib Code(s): I48.2 - CHRONIC ATRIAL FIBRILLATION (7) Congestive cardiac failure Code(s): I50.9 - HEART FAILURE, UNSPECIFIED (8) Fall Code(s): W19.XXXA - UNSPECIFIED FALL, INITIAL ENCOUNTER (9) Pulmonary hypertension Code(s): I27.20 - PULMONARY HYPERTENSION, UNSPECIFIED Assessment/Plan Medrol tapered yesterday, can likely change to Prednisone in AM and D/C BD TX Rocephin No smoking Fall precautions Dr Lynch Problem List - Problems (1) Acute exacerbation of chronic obstructive pulmonary disease (COPD) Code(s): J44.1 - CHRONIC OBSTRUCTIVE PULMONARY DISEASE W (ACUTE) EXACERBATION (2) Alcohol abuse Code(s): F10.10 - ALCOHOL ABUSE, UNCOMPLICATED (3) Tobacco abuse Code(s): Z72.0 - TOBACCO USE (4) UTI (urinary tract infection) Code(s): N39.0 - URINARY TRACT INFECTION, SITE NOT SPECIFIED (5) Acute on chronic respiratory failure with hypoxemia Code(s): J96.21 - ACUTE AND CHRONIC RESPIRATORY FAILURE WITH HYPOXIA (6) Chronic a-fib Code(s): I48.2 - CHRONIC ATRIAL FIBRILLATION (7) Congestive cardiac failure Code(s): I50.9 - HEART FAILURE, UNSPECIFIED (8) Fall Code(s): W19.XXXA - UNSPECIFIED FALL, INITIAL ENCOUNTER (9) Pulmonary hypertension Code(s): I27.20 - PULMONARY HYPERTENSION, UNSPECIFIED
[2018-01-13] MEDS ORDERED: LORazepam 2 MG/ML SDV VIAL IM PRN (14:39)
[2018-01-13] MEDS: DEXTROSE 5%-WATER - 1,000 ML IV SCH (14:52)
[2018-01-13] MEDS: INSULIN SLIDING SCALE (NOVOLOG) 1 VIAL SQ SCH (16:56)
[2018-01-13] MEDS: MONTELUKAST NA 10 MG TABLET PO SCH (21:21)
[2018-01-13] MEDS: ATORVASTATIN CA 80 MG TABLET (FP) PO SCH (21:21)
[2018-01-14] MEDS: methylPREDNISolone NA SUCC 40 MG/1 ML VIAL IVPUSH SCH ×2 (02:40→11:02)
[2018-01-14] MEDS: INSULIN SLIDING SCALE (NOVOLOG) 1 VIAL SQ SCH ×2 (06:21→12:00)
[2018-01-14 06:50] LABS: BASO % 0.1 % (0-2.0); HEMOGLOBIN 11.9 GM/dL (10.7-15.3); LYMPH % 7.6 % (8-40); MCH 27.7 pg (25.7-33.7); MCHC 31.4 g/dl (32.0-36.0); MEAN CELL VOLUME 88.1 fl (80-96); MEAN PLT VOLUME 8.8 fl (7.5-11.1); MONO % 3.7 % (3.8-10.2); NEUT % 88.6 % (42.8-82.8); PLATELET COUNT 275 K/MM3 (134-434); RBC 4.31 M/mm3 (3.60-5.2); RDW 18.1 % (11.6-15.6); WHITE BLOOD COUNT 10.3 K/mm3 (4.0-10.0)
[2018-01-14] MEDS: ALBUTEROL SO4 2.5/IPRATROPIUM 0.5 INH SOL 3 ML VIAL.NEB. NEB SCH ×2 (07:25→12:40)
[2018-01-14 07:53] LABS: ANION GAP 4 MMOL/L (8-16); BLOOD UREA NITROGEN 25 mg/dL (7-18); CALCIUM 8.7 mg/dL (8.5-10.1); CHLORIDE 106 mmol/L (98-107); CO2 32 mmol/L (21-32); CREATININE 0.7 mg/dL (0.55-1.3); GLUCOSE,RANDOM 166 mg/dL (74-106); POTASSIUM 4.6 mmol/L (3.5-5.1); SODIUM 142 mmol/L (136-145)
[2018-01-14 10:26] VITALS: BP 125/81; PULSE 84; TEMP 98.2
[2018-01-14] MEDS ORDERED: cefTRIAXone SODIUM 1 GM VIAL ONE (10:41)
[2018-01-14] MEDS ORDERED: DEXTROSE 5%-WATER - 50 ML IVPB ONE (10:42)
[2018-01-14] MEDS: CARVEDILOL 6.25 MG TABLET (FP) PO SCH (11:00)
[2018-01-14] MEDS: APIXABAN 5 MG TABLET PO SCH (11:00)
[2018-01-14] MEDS: LACTOBACILLUS ACIDOPHILUS 1 TABLET PO SCH (11:00)
[2018-01-14] MEDS: CEFTRIAXONE 1 GM in DEXTROSE 5%-WATER - 50 ML IVPB SCH (11:01)
[2018-01-14] MEDS: NICOTINE 14 MG/24 HOURS TOPICAL PATCH TD SCH (11:01)
[2018-01-14] MEDS ORDERED: INSULIN (NOVOLOG) ASPART 100 UNITS/ML 10ML VIAL ONE (11:52)
[2018-01-14] MEDS ORDERED: PANTOPRAZOLE 40 MG TABLET (FP) PO ONE (12:35)
--- NOTE | 2018-01-14 12:42 | PN ---
Progress Note (short form) - Note Progress Note: Subjective: no cp , no fever or chills, no abd pain. No cough . wants to go home , feels at her base line Objective: Vital Signs: Last Vital Signs Temp Pulse Resp BP Pulse Ox 98.2 F 84 20 125/81 94 L 01/14/18 10:24 01/14/18 10:24 01/14/18 10:24 01/14/18 10:24 01/13/18 21:00 Laboratory Results - last 24 hr 01/13/18 01/14/18 01/14/18 16:52 05:35 06:30 WBC 10.3 H RBC 4.31 Hgb 11.9 Hct 38.0 MCV 88.1 MCH 27.7 MCHC 31.4 L RDW 18.1 H Plt Count 275 MPV 8.8 Absolute Neuts (auto) 9.1 H Neutrophils % 88.6 H Lymphocytes % 7.6 L D Monocytes % 3.7 L Eosinophils % 0.0 Basophils % 0.1 Nucleated RBC % 0 Sodium Potassium Chloride Carbon Dioxide Anion Gap BUN Creatinine Creat Clearance w eGFR POC Glucometer 189 190 Random Glucose Calcium 01/14/18 01/14/18 06:30 11:33 WBC RBC Hgb Hct MCV MCH MCHC RDW Plt Count MPV Absolute Neuts (auto) Neutrophils % Lymphocytes % Monocytes % Eosinophils % Basophils % Nucleated RBC % Sodium 142 Potassium 4.6 Chloride 106 Carbon Dioxide 32 Anion Gap 4 L BUN 25 H Creatinine 0.7 Creat Clearance w eGFR > 60 POC Glucometer 238 Random Glucose 166 H Calcium 8.7 Physical Exam: Awake, alert, oriented. MMM, no facial droop CV: RRR, no MRG Lungs: CTAB , decreased breath sounds at bases Ext : no edema Abd:soft, NT, ND , NL BS Imaging: cxray reviewed. Assessment/Plan: 72 y/o lady with h/o HTN, HLD, alcohol abuse, COPD, atrial fibrillation who presented with SOB and was found to have acute COPD exacerbation 1- Acute COPD exacerbation: No PNA. improved. - taper down steroids and switch to po prednisone 40 BID . at dc can do daily dosing - cont Nebs - cont O2 supp - add PPI for GI prophylaxis 2- Complicated UTI: Urine cx on with E coli sensitive to CTX . had mild leukocytosis on admission - cont ceftriaxone day 06/08 3- Alcohol abuse. No signs of withdrawal - dc librium and ativan - monitor fro any signs of withdrawal 4- H/o A fib: - cont eliquis and coreg Dispo : medically ready for DC, Need rehab placement . d/w SW. JUANCHO to be sent . Visit type - Emergency Visit Emergency Visit: Yes ED Registration Date: 01/10/18 Care time: The patient presented to the Emergency Department on the above date and was hospitalized for further evaluation of their emergent condition. - New Patient This patient is new to me today: Yes Date on this admission: 01/14/18 - Critical Care Critical Care patient: No
--- NOTE | 2018-01-14 14:13 | PN ---
Progress Note, Physician History of Present Illness: pulmonary alert,no distress,on nasal cannula - Current Medication List Current Medications: Active Medications Albuterol Sulfate (Ventolin 0.083% Nebulizer Soln -) 1 amp NEB Q4H PRN PRN Reason: SHORT OF BREATH/WHEEZING Albuterol/Ipratropium (Duoneb -) 1 amp NEB RQID [facility] Last Admin: 01/14/18 07:25 Dose: 1 amp Apixaban (Eliquis -) 5 mg PO BID [facility] Last Admin: 01/14/18 11:00 Dose: 5 mg Atorvastatin Calcium (Lipitor -) 80 mg PO HS [facility] Last Admin: 01/13/18 21:21 Dose: 80 mg Carvedilol (Coreg -) 6.25 mg PO BID [facility] Last Admin: 01/14/18 11:00 Dose: 6.25 mg Ceftriaxone Sodium 1 gm/ (Dextrose) 50 mls @ 100 mls/hr IVPB DAILY [facility]; Protocol Last Admin: 01/14/18 11:01 Dose: 100 mls/hr Dextrose (D5w -) 1,000 mls @ 42 mls/hr IV ASDIR [facility] Last Admin: 01/13/18 14:52 Dose: 42 mls/hr Insulin Aspart (Novolog Vial Sliding Scale -) 1 vial SQ TIDAC [facility]; Protocol Last Admin: 01/14/18 12:00 Dose: 4 units Lactobacillus Acidophilus (Bacid -) 1 tab PO DAILY [facility] Last Admin: 01/14/18 11:00 Dose: 1 tab Montelukast Sodium (Singulair -) 10 mg PO HS [facility] Last Admin: 01/13/18 21:21 Dose: 10 mg Nicotine (Nicoderm Patch -) 14 mg TD DAILY [facility] Last Admin: 01/14/18 11:01 Dose: 14 mg Pantoprazole Sodium (Protonix -) 40 mg PO DAILY [facility] Prednisone (Deltasone -) 40 mg PO BID [facility] - Objective Vital Signs: Vital Signs Temperature 98.2 F 01/14/18 10:24 Pulse Rate 84 01/14/18 10:24 Respiratory Rate 20 01/14/18 10:24 Blood Pressure 125/81 01/14/18 10:24 O2 Sat by Pulse Oximetry (%) 94 L 01/14/18 09:00 Constitutional: Yes: Calm, Thin Eyes: Yes: WNL HENT: Yes: WNL, Other Cardiovascular: Yes: Regular Rate and Rhythm, S1, S2 Respiratory: Yes: Diminished Gastrointestinal: Yes: Normal Bowel Sounds, Soft Extremities: Yes: WNL Edema: No Labs: CBC, BMP 01/14/18 06:30 01/14/18 06:30 INR, PTT INR 1.03 (0.83-1.09) 01/10/18 02:21 Assessment/Plan robricm List - Problems (1) Acute exacerbation of chronic obstructive pulmonary disease (COPD) Code(s): J44.1 - CHRONIC OBSTRUCTIVE PULMONARY DISEASE W (ACUTE) EXACERBATION (2) Alcohol abuse Code(s): F10.10 - ALCOHOL ABUSE, UNCOMPLICATED (3) Tobacco abuse Code(s): Z72.0 - TOBACCO USE (4) UTI (urinary tract infection) Code(s): N39.0 - URINARY TRACT INFECTION, SITE NOT SPECIFIED (5) Acute on chronic respiratory failure with hypoxemia Code(s): J96.21 - ACUTE AND CHRONIC RESPIRATORY FAILURE WITH HYPOXIA (6) Chronic a-fib Code(s): I48.2 - CHRONIC ATRIAL FIBRILLATION (7) Congestive cardiac failure Code(s): I50.9 - HEART FAILURE, UNSPECIFIED (8) Fall Code(s): W19.XXXA - UNSPECIFIED FALL, INITIAL ENCOUNTER (9) Pulmonary hypertension Code(s): I27.20 - PULMONARY HYPERTENSION, UNSPECIFIED Assessment/Plan Prednisone BD TX Rocephin No smoking Fall precautions pulmonary rehab DR CELESTIN
--- NOTE | 2018-01-14 19:29 | DS ---
Physical Examination Vital Signs: Vital Signs Temperature 98.2 F 01/14/18 10:24 Pulse Rate 84 01/14/18 10:24 Respiratory Rate 20 01/14/18 10:24 Blood Pressure 125/81 01/14/18 10:24 O2 Sat by Pulse Oximetry (%) 96 01/14/18 09:35 Findings/Remarks: no OSB , no pain . no cough PE: Awake, alert, oriented. MMM, no facial droop CV: RRR, no MRG Lungs: CTAB , decreased breath sounds at bases Ext : no edema Abd:soft, NT, ND , NL BS Labs: CBC, BMP 01/14/18 06:30 01/14/18 06:30 Discharge Summary Reason For Visit: ACUTE RESPIRATORY FAILURE WITH HYPOXIA AND Hospital Course: 72 y/o lady with h/o HTN, HLD, alcohol abuse, COPD, atrial fibrillation who presented with SOB and was found to have acute COPD exacerbation her cxray on admission did not show any PNA . she was treated with steroids and breathing treatments and significantly improved . she was also placed on BIPAP initialy . of note she uses O2 at home she is to be discharged on steroids taper and inhalers with PPI for GI prophylaxis on she was diagnosed with UTI. urine cx showed e coli, that was sensitive to cephalosporins. she was treated with CTX and to be dc on vantin to complate 7 days ( 3 more left ) she was placed on librium fro alcohol withdrawal . no signs of withdrawal today dc to rehab today f/u with pcp , and pulm time spent 30 min Condition: Improved - Instructions Diet, Activity, Other Instructions: - follow with PCP in 1 week - follow with Dr. Jeffrey for 1 week - follow prednisone taper : 40 mg daily x 3 days then 30 mg daily for 3 days then 20 m g daily for 2 days then 10 mg daily x 2 days then stop - take vantin 20 mg BID x 3 more days starting 1114 am - usze prebiotics while on antibiotics then stop - use protonix while on steroids then stop Referrals: Kermit Villanueva MD [Staff Physician] - Disposition: RETIREMENT FACILITY - Home Medications Comprehensive Discharge Medication List: Ambulatory Orders Albuterol Sulfate Inhaler - [Ventolin HFA Inhaler -] 1 - 2 inh PO Q4H 01/08/18 Apixaban [Eliquis] 5 mg PO BID 01/08/18 Atorvastatin Ca [Lipitor] 80 mg PO HS 01/08/18 Carvedilol [Coreg -] 6.25 mg PO BID 01/08/18 Montelukast Sodium [Singulair] 10 mg PO DAILY 01/08/18 Albuterol 0.083% Nebulizer Veronica [Ventolin 0.083% Nebulizer Soln -] 1 amp NEB Q4H PRN amp 01/14/18 Budesonide/Formeterol Fumarate [SYMBICORT 160/4.5mcg -] 1 inh PO BID #1 cannister 01/14/18 Cefpodoxime Proxetil [Vantin -] 200 mg PO Q12H 3 Days #6 tablet 01/14/18 Insulin Sliding Scale [Novolog Vial Sliding Scale -] See Protocol SQ TIDAC units 01/14/18 Lactobacillus Acidophilus [Bacid -] 1 tab PO DAILY tab 01/14/18 Pantoprazole Sodium [Protonix] 40 mg PO DAILY #14 tablet. 01/14/18 predniSONE [Deltasone -] 40 mg PO DAILY tablet 01/14/18 This patient is new to me today: Yes Date on this admission: 01/14/18 Emergency Visit: Yes ED Registration Date: 01/10/18 Care time: The patient presented to the Emergency Department on the above date and was hospitalized for further evaluation of their emergent condition. Critical Care patient: No - Discharge Referral [facility]erred [facility] No
[2018-01-14] MEDS ORDERED: predniSONE 20 MG TABLET (UD) PO SCH (22:00)
[2018-01-15] MEDS ORDERED: PANTOPRAZOLE 40 MG TABLET (FP) PO SCH (10:00)
== END 2018-01-14 17:09 | DRG 189 ==
LOC: JER 20:49 → JERBED 23:52 → J6S 01-11 05:20
PROVIDERS: ADMIT Internal Medicine; ATTEND Internal Medicine
PROC: 5A09357 Assistance with Respiratory Ventilation, Less than 24 Consecutive Hours, Continuous Positive Airway Pressure (ICD-10-PCS; principal; 2018-01-11)
DX: J96.21 Acute and chronic respiratory failure with hypoxia (principal); G92 Toxic encephalopathy; J44.1 Chronic obstructive pulmonary disease with (acute) exacerbation; N39.0 Urinary tract infection, site not specified; E87.0 Hyperosmolality and hypernatremia; I10 Essential (primary) hypertension; E78.5 Hyperlipidemia, unspecified; Z79.01 Long term (current) use of anticoagulants; F10.10 Alcohol abuse, uncomplicated; F17.210 Nicotine dependence, cigarettes, uncomplicated; I48.2 Chronic atrial fibrillation; I27.20 Pulmonary hypertension, unspecified; B96.20 Unspecified Escherichia coli [E. coli] as the cause of diseases classified elsewhere
CPT/HCPCS: 36415; 36600; 70450-TC; 71045-TC-FY; 80048; 80053; 80307; 81003; 81015; 82550; 82803; 82962; 83735; 83880; 84100; 84484; 85025; 85027; 85610; 87186; 90670; 90688; 93005; 93010; 93306-TC; 94640; 94660; 97116-GP; 97161-GP; 99285-25; G0008; G0009; G0378; J7030